=== PATIENT | male | born 1940 | race Caucasian/White ===

== ENCOUNTER 2016-05-15 12:13 | Emergency (ER) | payer OTHER ==
[~2016-05-15] VITALS: Ht 162.6 cm; Wt 70.0 kg
[~2016-05-15 12:13] MED LIST: CHRO1000 PO; GLUCTAB PO; LISI-357 PO; LISI-360 PO; MAGN400C2 PO; MULT-65 PO; SIMV40TA PO
[2016-05-15 12:23] VITALS: BP 155/80; PULSE 88; RESP 16; TEMP 97.7; O2SAT 95
--- NOTE | 2016-05-15 12:46 | PD ---
HPI Chief Complaint: ENT Complaint Time Seen by Provider: 12:45 Travel History International Travel<30 days: No Contact w/Intl Traveler<30days: No Traveled to known affect area: No History of Present Illness HPI 76-year-old male came to the emergency room with history of left sided ear/ cheek pain. Patient says it has been going on for past 1 month. He saw a dentist since he does have dentition issues. However he knows that is not coming from his tooth. Patient says the pain gets worse about an hour after eating. Currently his pain is 7-8 out of 10. No history of chest pain. He does not appear to be in any significant distress currently. His vital signs were stable. [facility] Past Medical History Narrative Medical List of his past medical, surgical, social and family history was reviewed from the nursing note. 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 Reported Meds & Prescriptions Reported Meds & Active Scripts Active Amoxicillin 500 Mg Cap 500 Mg PO BID 10 Days Reported Lisinopril 10 Mg Tab 10 Mg PO DAILY Zocor (Simvastatin) 40 Mg Tab 40 Mg PO DAILY Vitamin B12 Tr (Cyanocobalamin) 1,000 Mcg Tab 1,000 Mcg PO DAILY Timolol Opth Drops 0.5 % Soln 1 Drop EACH EYE BID Multivitamin Adults (Multiple Vitamins W/ Minerals) 1 Tab 1 Tab PO DAILY Metformin (Metformin HCl) 1,000 Mg Tab 1,000 Mg PO BIDPC With meals Fluticasone Nasal [place] 50 Mcg/Act Naspr 50 Mcg EACH NARE BID 50 mcg/spray Doxazosin (Doxazosin Mesylate) 4 Mg Tab 1.5 Tab PO DAILY Brimonidine Opth Drops (Brimonidine Tartrate) 0.2% Soln 1 Drop EACH EYE BID Aspirin 81 Mg Tabdr 81 Mg PO DAILY Narrative Medication List of his home medications reviewed from the nursing note. Review of Systems Except as stated in HPI: all other systems reviewed are Neg Physical Exam Narrative GENERAL: Awake, alert, elderly, no obvious distress SKIN: Focused skin assessment warm/dry. HEAD: Atraumatic. Normocephalic. EYES: Pupils equal and round. No scleral icterus. No injection or drainage. ENT: No nasal bleeding or discharge. Mucous membranes pink and moist. Poor dentition but no dental abscess noticed. Tender over the left infra-auricular area. NECK: Trachea midline. No JVD. CARDIOVASCULAR: Regular rate and rhythm. No murmur appreciated. RESPIRATORY: No accessory muscle use. Clear to auscultation. Breath sounds equal bilaterally. GASTROINTESTINAL: Abdomen soft, non-tender, nondistended. Hepatic and splenic margins not palpable. MUSCULOSKELETAL: No obvious deformities. No clubbing. No cyanosis. No edema. NEUROLOGICAL: Awake and alert. No obvious cranial nerve deficits. Motor grossly within normal limits. Normal speech. PSYCHIATRIC: Appropriate mood and affect; insight and judgment normal. Data Data Last Documented VS Vital Signs Date Time Temp Pulse Resp B/P Pulse Ox O2 Delivery O2 Flow Rate FiO2 05/15/16 12:23 97.7 88 16 155/[address] Soft Tiss Neck W/O Iv Cont (05/15/16 ) Ketorolac Inj (Toradol Inj) (05/15/16 14:30) MDM Medical Decision Making Medical Screen Exam Complete: Yes Emergency Medical Condition: Yes Medical Record Reviewed: Yes Differential Diagnosis Sialolithiasis, sialoadenitis Narrative Course 2:32 PM CAT scan was ordered of the soft tissue of the neck looking of the parotid without contrast. Awaiting for the CAT scan to be resulted. Patient was given IM Toradol for pain. 3:[address] scan report is finally back. Shows a small stone in the submandibular gland on the left side without any surrounding inflammation. I will discharge this patient home at this point. Procedures EKG Prior to Arrival: No Diagnosis Primary Impression: Earache on left Referrals: Primary Care Physician Additional Instructions: Take the medication as per the prescription direction. Follow-up with your primary care. Med/Other Pt SpecificInfo: Prescription(s) given Scripts Amoxicillin 500 Mg [id number] Mg PO BID 10 Days Ref 0 Prov:Dre Toth MD 05/15/16 Disposition: 01 DISCHARGE HOME Condition: Stable Dre Toth MD May 15, 2016 12:46
[2016-05-15] MEDS ORDERED: FLUT50SP EACH NARE (12:53)
[2016-05-15] MEDS ORDERED: METF1000 PO (12:53)
[2016-05-15] MEDS ORDERED: BRIM0.2S4 EACH EYE (12:53)
[2016-05-15] MEDS ORDERED: DOXA1TAB34 PO (12:53)
[2016-05-15] MEDS ORDERED: LISI10TA3 PO (12:53)
[2016-05-15] MEDS ORDERED: VITA10004 PO (12:53)
[2016-05-15] MEDS ORDERED: ASPI1TAB69 PO (12:53)
[2016-05-15] MEDS ORDERED: TIMO0.5S30 EACH EYE (12:53)
[2016-05-15] MEDS ORDERED: ZOCO40TA PO (12:53)
[2016-05-15] MEDS ORDERED: MULT1TAB84 PO (12:53)
[2016-05-15] MEDS ORDERED: KETOROLAC TROMETHAMINE 60 MG/2 ML (IM) VIAL IM ONE (14:30)
--- NOTE | 2016-05-15 15:04 | RADHPO ---
EXAM DATE/TIME: 05/15/2016 13:21 [facility] COMPARISON: No previous studies available for comparison. INDICATIONS : Left cheek pain; evaluate for left parotid gland stone. RADIATION DOSE: 13.44 CTDIvol (mGy) MEDICAL HISTORY : Hypertension. SURGICAL HISTORY : None. ENCOUNTER: Initial ACUITY: 1 day PAIN SCORE: 5/10 LOCATION: Left neck TECHNIQUE: Volumetric scanning of the neck was performed. Using automated exposure control and adjustment of th e mA and/or kV according to patient size, radiation dose was kept as low as reasonably achievable to obtain optimal diagnostic quality images. FINDINGS: No evidence of lateral neck adenopathy. The submandibular and lingual glands are normal in size. Th e parotid glands are symmetric in appearance. No induration of the soft tissues above the parotid gl and. No calcifications along the course of Stensen's duct. There is a small calcification in the in ferior parenchyma of the left submandibular gland but no enlargement of the gland. There are multipl e small calcifications in the region of the tonsils. The Prevertebral soft tissues are normal in thickness. Visualized portions of paranasal sinuses is unrem arkable. The thyroid gland is small. Supraclavicular regions are unremarkable. CONCLUSION: No evidence of parotid or ductal calcification. There is a small calcification in the parenchyma of the left submandibular gland without enlargement of the gland or surrounding induration. Yahir Sheth MD on May 15, 2016 at 14:55 Board Certified Radiologist. This report was verified electronically.
[2016-05-15] MEDS ORDERED: AMOX500C PO (15:13)
== END 2016-05-15 15:25 | disposition home or self-care (01) ==
LOC: PHEFT 12:13
DX: H92.02 Otalgia, left ear (principal); R51 Headache; E11.9 Type 2 diabetes mellitus without complications; I10 Essential (primary) hypertension; E78.00 Pure hypercholesterolemia, unspecified; H91.90 Unspecified hearing loss, unspecified ear; Z79.84 Long term (current) use of oral hypoglycemic drugs; Z86.79 Personal history of other diseases of the circulatory system
CPT/HCPCS: 70490; 96372; 99283; J1885

== ENCOUNTER 2016-07-24 12:32 | Emergency (ER) | payer OTHER ==
[~2016-07-24] VITALS: Ht 157.5 cm; Wt 60.0 kg
[~2016-07-24 12:32] MED LIST changes: +AMOX500C PO; +ASPI1TAB69 PO; +BRIM0.2S4 EACH EYE; -CHRO1000 PO; +DOXA1TAB34 PO; +FLUT50SP EACH NARE; -GLUCTAB PO; -LISI-357 PO; -LISI-360 PO; +LISI10TA3 PO; -MAGN400C2 PO; +METF1000 PO; -MULT-65 PO; +MULT1TAB84 PO; -SIMV40TA PO; +TIMO0.5S30 EACH EYE; +VITA10004 PO; +ZOCO40TA PO
[2016-07-24 12:34] VITALS: BP 161/79; PULSE 76; RESP 16; TEMP 97.6; O2SAT 98
--- NOTE | 2016-07-24 12:41 | PD ---
Physical Exam Time Seen by Provider: 12:39 Narrative 76yo M c/o left-sided headache for [address] Truong. Denies focal deficits or weakness. Patient seen in triage. VS reviewed. Awaiting bed placement. Data Data Last Documented VS Vital Signs Date Time Temp Pulse Resp B/P Pulse Ox O2 Delivery O2 Flow Rate FiO2 07/24/16 12:34 97.6 76 16 161/79 98 Room Air MDM Supervised Visit with GLENNY: Toya Ortega Jul 24, 2016 12:41
[2016-07-24] MEDS ORDERED: OFLO0.3D9 LEFT EAR (16:14)
--- NOTE | 2016-07-24 16:19 | PD ---
HPI . left sided headache for 2 months, worse for last 2 weeks Chief Complaint: Headache Time Seen by Provider: 16:19 Travel History International Travel<30 days: No Contact w/Intl Traveler<30days: No Traveled to known affect area: No History of Present Illness HPI 76-year-old male here with complaints of headache for 2 months. Patient says that this all started with his ear and has been present ever since. He tells me that he had ear infection that was treated and is still currently being treated for an outer ear infection and is using ear drops. He went to his primary care provider was told to come to the emergency department. He's had a left-sided headache for the past 2 weeks. Reports a history of migraines, but this headache is slightly different. He has a very hard time describing it and tells me it feels like his head is swollen from the inside. Aspirin will relieve the pain for 2 hours, but then it returns. He denies any numbness, tingling, or weakness. 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) Genitourinary: Yes (ENLARGED PROSTATE) Hypertension: Yes Immunizations Current: Yes Tetanus Vaccination: > 5 Years Influenza Vaccination: Yes Social History Alcohol Use: Yes (occ) Tobacco Use: No (former) Substance Use: No Allergies-Medications (Allergen,Severity, Reaction): Coded Allergies: No Known Allergies (Verified , 07/24/16) Reported Meds & Prescriptions Reported Meds & Active Scripts Active Reported Ofloxacin Otic Drops 0.3 % Drops 5 Drop LEFT EAR DAILY Lisinopril 10 Mg Tab 10 Mg PO DAILY Zocor (Simvastatin) 40 Mg Tab 40 Mg PO DAILY Timolol Opth Drops 0.5 % Soln 1 Drop EACH EYE BID Metformin (Metformin HCl) 1,000 Mg Tab 1,000 Mg PO BIDPC With meals Doxazosin (Doxazosin Mesylate) 4 Mg Tab 1.5 Tab PO DAILY Brimonidine Opth Drops (Brimonidine Tartrate) 0.2% Soln 1 Drop EACH EYE BID Review of Systems General / Constitutional: No: Fever Eyes: No: Visual changes HENT: Positive: Ear Discharge, Earache, No: Headaches Cardiovascular: No: Chest Pain or Discomfort Respiratory: No: Shortness of Breath Gastrointestinal: No: Abdominal Pain Genitourinary: No: Dysuria Musculoskeletal: No: Pain Skin: No Rash Neurologic: Positive: Headache, No: Weakness, Dizziness, Syncope, Focal Abnormalities Psychiatric: No: Depression Endocrine: No: Polydipsia Hematologic/Lymphatic: No: Easy Bruising Physical Exam Narrative GENERAL: AAO x 3, no acute distress, Well-nourished, well-developed patient. SKIN: Warm and dry. No visible rashes or bruising. HEAD: Normocephalic and atraumatic.no tender to palpation in all areas EYES: No scleral icterus. No injection or drainage. EOM intact, PERRLA ENT: No nasal drainage noted. Mucous membranes pink. Airway patent. left TM with purulence drainage, no mastoid process tenderness, tragus normal NECK: Supple, trachea midline. No JVD. no lymphadenopathy, CARDIOVASCULAR: Regular rate and rhythm without murmurs, gallops, or rubs. RESPIRATORY: Breath sounds equal bilaterally. No accessory muscle use. No rhonchi or rales. GASTROINTESTINAL: visual inspection normal EXTREMITIES: No cyanosis or edema. BACK: Nontender without obvious deformity. No CVA tenderness. 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 Data Data Last Documented VS Vital Signs Date Time Temp Pulse Resp B/P Pulse Ox O2 Delivery O2 Flow Rate FiO2 07/24/16 18:18 78 19 183/86 97 07/24/16 12:[address] Brain W/O Iv Contrast(Rout) (07/24/16 16:28) Sodium Chloride 0.9% Flush (Ns Flush) (07/24/16 16:30) Morphine Inj (Morphine Inj) (07/24/16 17:45) Tramadol (Ultram) (07/24/16 18:00) MDM Medical Decision Making Medical Screen Exam Complete: Yes Emergency Medical Condition: Yes Medical Record Reviewed: Yes Differential Diagnosis OE, mastoiditis, migraines, Narrative Course 76 yr old male here with left ear pain and headache for several weeks. He does have OE of the left ear on exam and is currently being treated. CT scan of the brain ordered. Patient given tramadol for pain. Last Impressions Head CT 07/24/16 1628 Signed Impressions: Service Date/Time: July 17:19 - CONCLUSION: 1. No acute intracranial abnormality identified. Cabrera La MD CT unremarkable. I have discussed results with him and recommend outpatient f/u with ENT. He can continue his current medications and use over the counter tylenol and motrin as needed for pain. Patient verbalized understanding of instructions, questions were answered, and thanked me for their care. I advised them if their condition worsens, please return to the nearest emergency room for further care. Diagnosis Primary Impression: Headache Qualified Code: R51 - Chronic nonintractable headache, unspecified headache type Additional Impression: OE (otitis externa) Qualified Code: H60.312 - Acute diffuse otitis externa of left ear Patient Instructions: General Instructions Additional Instructions: Continue her eardrops as prescribed. You may benefit from ear nose and throat consult, please discuss this with your primary care provider. Med/Other Pt SpecificInfo: No Change to Meds Disposition: 01 DISCHARGE HOME Condition: Stable Marybel Long Jul 24, 2016 16:19
[2016-07-24] MEDS ORDERED: SODIUM CHLORIDE 0.9% FLUSH 10 ML FLUSH IVF PRN (16:30)
--- NOTE | 2016-07-24 17:44 | RADRPT ---
EXAM DATE/TIME: 07/24/2016 17:19 [facility] COMPARISON: CT SOFT TISSUE NECK W/O CONTRAST, May 15, 2016, 13:21. INDICATIONS : Patient complains of headache. RADIATION DOSE: 13.4 CTDIvol (mGy) MEDICAL HISTORY : Cardiovascular disease. Hypertension. SURGICAL HISTORY : None. ENCOUNTER: Initial ACUITY: 1 day PAIN SCALE: 9/10 LOCATION: cranial TECHNIQUE: Multiple contiguous axial images were obtained of the head. Using automated exposure control and adj ustment of the mA and/or kV according to patient size, radiation dose was kept as low as reasonably a chievable to obtain optimal diagnostic quality images. FINDINGS: CEREBRUM: The ventricles are normal for age. No evidence of midline shift, mass lesion, hemorrhage or acute in farction. No extra-axial fluid collections are seen. POSTERIOR FOSSA: The cerebellum and brainstem are intact. The 4th ventricle is midline. The cerebellopontine angle i s unremarkable. EXTRACRANIAL: The visualized portion of the orbits is intact. SKULL: The calvaria is intact. No evidence of skull fracture. CONCLUSION: 1. No acute intracranial abnormality identified. Cabrera La MD on July 24, 2016 at 17:40 Board Certified Radiologist. This report was verified electronically.
[2016-07-24] MEDS ORDERED: MORPHINE SULFATE 4 MG/ML INJ IV PUSH ONE (17:45)
[2016-07-24] MEDS ORDERED: traMADol HCL 50 MG TAB PO ONE (18:00)
[2016-07-24 18:18] VITALS: BP 183/86
== END 2016-07-24 18:21 | disposition home or self-care (01) ==
LOC: NEPD 12:32
DX: R51 Headache (principal); E78.00 Pure hypercholesterolemia, unspecified; E11.9 Type 2 diabetes mellitus without complications; N40.0 Benign prostatic hyperplasia without lower urinary tract symptoms; I10 Essential (primary) hypertension; Z87.891 Personal history of nicotine dependence
CPT/HCPCS: 70450; 99285